=== PATIENT | male | born 1965 | race Caucasian/White ===

== ENCOUNTER → 2016-08-19 | Outpatient (REF) | payer OTHER ==
[~2016-08-19] MED LIST: ALTA5CAP OR; CIPR25SS OR; FLAG500T OR; PAIN325T OR; SIMV20TA2 OR; VICO5TAB OR
[2016-08-19 12:33] LABS: ALBUMIN 4.1 GM/DL (3.2-5.2); ALBUMIN/GLOBULIN RATIO 1.86 (1.00-1.93); ALKALINE PHOSPHATASE 55 U/L (45-117); ALT/SGPT 30 U/L (12-78); ANION GAP 7 MEQ/L (8-16); AST/SGOT 16 U/L (15-37); BILIRUBIN,TOTAL 0.9 MG/DL (0.2-1.0); BLOOD UREA NITROGEN 20 MG/DL (7-18); CALCIUM LEVEL 8.4 MG/DL (8.5-10.1); CARBON DIOXIDE LEVEL 31 MEQ/L (21-32); CHLORIDE LEVEL 104 MEQ/L (98-107); CHOLESTEROL LEVEL 170 MG/DL (<200); CREATININE FOR GFR 0.94 MG/DL (0.70-1.30); GLOMERULAR FILTRATION RATE > 60.0 (>56); GLUCOSE, FASTING 100 MG/DL (70-105); POTASSIUM SERUM 3.6 MEQ/L (3.5-5.1); SODIUM LEVEL 142 MEQ/L (136-145); TOTAL PROTEIN 6.3 GM/DL (6.4-8.2); TRIGLYCERIDES LEVEL 198 MG/DL (<150)
== END ==
LOC: M LABDRWAD 12:09
PROVIDERS: ATTEND Internal Medicine
DX: E78.5 Hyperlipidemia, unspecified (principal); K21.9 Gastro-esophageal reflux disease without esophagitis; I10 Essential (primary) hypertension

== ENCOUNTER → 2017-02-16 | Outpatient (REF) | payer OTHER ==
[~2017-02-16] MED LIST changes: +CARB25TA PO; +LOSA25TA8 PO
[2017-02-16 13:10] LABS: ALKALINE PHOSPHATASE 58 U/L (45-117); ALT/SGPT 32 U/L (12-78); ANION GAP 7 MEQ/L (8-16); AST/SGOT 11 U/L (15-37); BILIRUBIN,TOTAL 0.9 MG/DL (0.2-1.0); BLOOD UREA NITROGEN 18 MG/DL (7-18); CALCIUM LEVEL 8.7 MG/DL (8.5-10.1); CARBON DIOXIDE LEVEL 29 MEQ/L (21-32); CHLORIDE LEVEL 105 MEQ/L (98-107); CHOLESTEROL LEVEL 200 MG/DL (<200); CREATININE FOR GFR 0.91 MG/DL (0.70-1.30); GLOMERULAR FILTRATION RATE > 60.0 (>56); GLUCOSE, FASTING 96 MG/DL (70-105); POTASSIUM SERUM 3.7 MEQ/L (3.5-5.1); SODIUM LEVEL 141 MEQ/L (136-145); TOTAL PROTEIN 6.5 GM/DL (6.4-8.2); TRIGLYCERIDES LEVEL 207 MG/DL (<150)
== END ==
LOC: M LABDRWAD 12:35
PROVIDERS: ATTEND Internal Medicine
DX: E78.5 Hyperlipidemia, unspecified (principal); I10 Essential (primary) hypertension

== ENCOUNTER 2017-04-30 11:50 | Day surgery (SDC) | payer OTHER ==
[~2017-04-30] VITALS: Ht 177.8 cm; Wt 102.1 kg
[2017-04-30] MEDS ORDERED: LR 1,000 ML IV ONE (12:00)
[2017-04-30] MEDS ORDERED: PROPOFOL 200 MG/20 ML VIAL As Ordered ONE (13:28)
[2017-04-30] MEDS ORDERED: ONDANSETRON 4MG/2ML VIAL (J2405) As Ordered ONE (13:31)
[2017-04-30] MEDS ORDERED: fentaNYL 100 MCG/2 ML INJECTION (J3010) As Ordered ONE (13:31)
[2017-04-30] MEDS ORDERED: MIDAZOLAM INJ 2 MG/2 ML VIAL (J2250) As Ordered ONE (13:31)
[2017-04-30] MEDS ORDERED: BUPIVACAINE/EPIN 0.25% 30 ML VIAL As Ordered ONE (14:00)
[2017-04-30] MEDS ORDERED: MEPERIDINE INJ 25 MG/ML VIAL (J2175) IV PRN (15:45)
[2017-04-30] MEDS ORDERED: METOCLOPRAMIDE INJ 10MG/2ML VIAL (J2765) IV PRN (15:45)
[2017-04-30] MEDS ORDERED: fentaNYL 100 MCG/2 ML INJECTION (J3010) IV PRN (15:45)
[2017-04-30] MEDS ORDERED: NORCO, ANEXSIA 5/325MG TABLET (HYDROcodone/ACETAMINOPHEN) PO PRN (15:45)
[2017-04-30] MEDS ORDERED: PERCOCET 5MG/325MG TAB PO PRN (15:45)
[2017-04-30] MEDS ORDERED: MORPHINE 2 MG/ML 1ML SYRINGE IV PRN (15:45)
[2017-04-30] MEDS ORDERED: LR 1,000 ML IV SCH ×2 (15:45)
[2017-04-30] MEDS ORDERED: ONDANSETRON 4MG/2ML VIAL (J2405) IV PRN ×2 (15:45)
[2017-04-30 16:00] VITALS: BP 146/90
--- NOTE | 2017-05-09 14:09 | RO ---
DATE OF PROCEDURE: 04/30/2017 PREOPERATIVE DIAGNOSIS: Melanoma in situ right arm. POSTOPERATIVE DIAGNOSIS: Melanoma in situ right arm. PROCEDURE: Wide local excision melanoma in situ right arm. SURGEON: Yair Sanders MD STUDIO OPERATIONS ENGINEER IN CHARGE: ANESTHESIA: Intravenous (IV) sedation, plus local. ESTIMATED BLOOD LOSS (EBL): Minimal. FLUIDS: Crystalloid. BRIEF PROCEDURE SUMMARY: The patient was brought to the operating room, was given IV sedation. After adequate IV sedation, the patient was (dictation cut off) the patient had been prepped and draped in usual sterile fashion. Local lidocaine mixed with epinephrine and Marcaine was infiltrated into the skin, subcutaneous tissue surrounding this melanoma. An elliptical incision was made after marking out the margins outside of the previous biopsy site, and a 8 cm long elliptical incision was made with skin knife and electrocautery was then used to cut through dermis, subcutaneous tissue. Eventually, this was removed using a combination of blunt and sharp dissection as well as electrocautery through the skin and subcutaneous tissue. Once this was removed, the skin flaps were mobilized minimally with blunt dissection as well as electrocautery, but seemed to come together nicely with #2-0 Vicryl deep layer, #3-0 Vicryl dermal layer and #4-0 Vicryl subcuticular. Steri-Strips and dry sterile dressing was applied. The patient was awakened from his sedation, brought to the recovery room awake, alert and hemodynamically stable. Sponge and needle counts correct times two.
== END 2017-04-30 16:05 | disposition home or self-care (01) ==
LOC: M SDC 11:50
PROVIDERS: ATTEND Surgery
DX: C43.61 Malignant melanoma of right upper limb, including shoulder (principal); L90.5 Scar conditions and fibrosis of skin; I10 Essential (primary) hypertension; E78.00 Pure hypercholesterolemia, unspecified; M12.9 Arthropathy, unspecified; G25.81 Restless legs syndrome; Z79.899 Other long term (current) drug therapy
CPT/HCPCS: 88305; J0690; J2250; J2405; J3010

== ENCOUNTER → 2017-08-13 | Outpatient (REF) | payer OTHER ==
[2017-08-13 12:49] LABS: ALBUMIN 4.5 GM/DL (3.2-5.2); ALKALINE PHOSPHATASE 64 U/L (45-117); ALT/SGPT 29 U/L (12-78); ANION GAP 8 MEQ/L (8-16); AST/SGOT 20 U/L (7-37); BILIRUBIN,TOTAL 1.3 MG/DL (0.2-1.0); BLOOD UREA NITROGEN 17 MG/DL (7-18); CALCIUM LEVEL 9.1 MG/DL (8.5-10.1); CARBON DIOXIDE LEVEL 31 MEQ/L (21-32); CHLORIDE LEVEL 103 MEQ/L (98-107); CHOLESTEROL LEVEL 145 MG/DL (<200); CHOLESTEROL RISK RATIO 3.536 (<5); CREATININE FOR GFR 1.02 MG/DL (0.70-1.30); GLOMERULAR FILTRATION RATE > 60.0 (>56); GLUCOSE, FASTING 92 MG/DL (70-100); HDL CHOLESTEROL 41 MG/DL (>40); LDL CHOLESTEROL 84.2 MG/DL (<100); NON-HDL-C 104 MG/DL; POTASSIUM SERUM 3.7 MEQ/L (3.5-5.1); SODIUM LEVEL 142 MEQ/L (136-145); TRIGLYCERIDES LEVEL 99 MG/DL (<150)
== END ==
LOC: M LABDRWAD 12:02
DX: I10 Essential (primary) hypertension (principal); E78.5 Hyperlipidemia, unspecified

== ENCOUNTER → 2017-10-10 | Outpatient (CLI) | payer OTHER | LOC: M ADAMS 14:06 | DX: M54.6 Pain in thoracic spine (principal) | CPT/HCPCS: 72072 ==

== ENCOUNTER → 2018-08-27 | Outpatient (CLI) | payer OTHER ==
[~2018-08-27] MED LIST changes: -CARB25TA PO; +CARB25TA9 PO; +LOSA25TA14 PO; -LOSA25TA8 PO
[2018-08-27 18:59] LABS: ALBUMIN 4.7 GM/DL (3.2-5.2); ALT/SGPT 25 U/L (12-78); BLOOD UREA NITROGEN 19 MG/DL (7-18); CALCIUM LEVEL 8.8 MG/DL (8.5-10.1); CARBON DIOXIDE LEVEL 31 MEQ/L (21-32); CHLORIDE LEVEL 99 MEQ/L (98-107); CHOLESTEROL LEVEL 178 MG/DL (<200); CHOLESTEROL RISK RATIO 4.684 (<5); CREATININE FOR GFR 0.96 MG/DL (0.70-1.30); GLOMERULAR FILTRATION RATE > 60.0 (>56); GLUCOSE, FASTING 95 MG/DL (70-100); HDL CHOLESTEROL 38 MG/DL (>40); LDL CHOLESTEROL 123 MG/DL (<100); NON-HDL-C 140 MG/DL; POTASSIUM SERUM 3.5 MEQ/L (3.5-5.1); SODIUM LEVEL 137 MEQ/L (136-145); TOTAL PROTEIN 7.1 GM/DL (6.4-8.2); TRIGLYCERIDES LEVEL 86 MG/DL (<150)
== END ==
LOC: M ADAMS 10:54
PROVIDERS: ATTEND Internal Medicine
DX: E78.5 Hyperlipidemia, unspecified (principal); I10 Essential (primary) hypertension

== ENCOUNTER 2019-01-10 00:05 | Emergency (ER) | payer OTHER ==
[~2019-01-10] VITALS: Ht 177.8 cm; Wt 96.6 kg
[2019-01-10] MEDS ORDERED: LOSA100T5 PO (00:29)
[2019-01-10 00:32] LABS: BASO % 0.3 % (0.0-1.0); EOS # 0.1 10^3/uL (0.0-0.50); EOS % 0.9 % (0.0-3.0); HEMATOCRIT 44.5 % (42.0-52.0); HEMOGLOBIN 16.1 g/dl (13.5-17.5); LYMPH % 31.8 % (24.0-44.0); MEAN CORPUSCULAR HEMOGLOBIN 30.1 pg (27.0-33.0); MEAN CORPUSCULAR HGB CONC 36.2 g/dl (32.0-36.5); MEAN CORPUSCULAR VOLUME 83.2 fl (80.0-96.0); MONO # 0.5 10^3/uL (0.0-0.8); MONO % 7.3 % (0.0-5.0); NEUTROPHILS # 3.8 10^3/uL (1.8-7.7); NEUTROPHILS % 59.4 % (36.0-66.0); PLATELET COUNT, AUTOMATED 157 10^3/uL (150-450); RED BLOOD COUNT 5.35 10^6/uL (4.30-6.10); WHITE BLOOD COUNT 6.3 10^3/uL (4.0-10.0)
--- NOTE | 2019-01-10 00:40 | REPVR ---
EXAM: CT Head Without Contrast EXAM DATE/TIME: 01/10/2019 12:10 AM CLINICAL HISTORY: 53 years old, male; Weakness, facial; Additional info: CVA - nursing interventions must not delay CT TECHNIQUE: Imaging protocol: Computed tomography images of the head without contrast. Radiation optimization: All CT scans at this facility use at least one of these dose optimization techniques: automated exposure control; mA and/or kV adjustment per patient size (includes targeted exams where dose is matched to clinical indication); or iterative reconstruction. Other technique: STROKE PROTOCOL was implemented. COMPARISON: No relevant prior studies available. FINDINGS: Brain: There are 2 right and 1 left basal ganglia hyperdensities measuring up to 2 mm and 1 mm on the right and 4 mm on the left, measuring approximately 53 HU. No visible edema. No evidence of acute territorial infarction. No mass effect or midline shift. Ventricles: No hydrocephalus. Bones/joints: Unremarkable. No acute fracture. Sinuses: Visualized sinuses are unremarkable. No fluid levels. Mastoid air cells: No mastoid effusion. Soft tissues: Unremarkable. IMPRESSION: 1. Bilateral basal ganglia hyperdensities, which could represent hemorrhages, calcifications, or prominent vessels. Comparison with prior studies may be helpful if available. Consider followup CT or MRI. 2. No evidence of acute territorial infarction. ASSESSMENT: Carin Stroke Program Early CT Score (ASPECTS) = 10. Electronically signed by: Jhon Watt On 01/10/2019 00:40:17 AM
[2019-01-10 00:44] LABS: INR 1.04; PROTHROMBIN TIME 13.3 SECONDS (11.8-14.0)
[2019-01-10 00:45] LABS: PARTIAL THROMBOPLASTIN TIME 26.3 SECONDS (25.0-38.4)
[2019-01-10 00:59] LABS: BLOOD UREA NITROGEN 20 MG/DL (7-18); CALCIUM LEVEL 8.7 MG/DL (8.5-10.1); CARBON DIOXIDE LEVEL 31 MEQ/L (21-32); CHLORIDE LEVEL 105 MEQ/L (98-107); CK-MB VALUE MASS 1.6 NG/ML (<3.6); CPK CREATINE PHOSPHOKINASE 230 U/L (39-308); CREATININE FOR GFR 0.92 MG/DL (0.70-1.30); GLOMERULAR FILTRATION RATE > 60.0 (>56); GLUCOSE, FASTING 102 MG/DL (70-100); POTASSIUM SERUM 3.2 MEQ/L (3.5-5.1); SODIUM LEVEL 141 MEQ/L (136-145); TROPONIN I < 0.02 NG/ML (< 0.10)
[2019-01-10] MEDS ORDERED: POTASSIUM CHLORIDE 10 MEQ SR TABLET PO ONE (01:15)
[2019-01-10 01:27] VITALS: BP 128/89
--- NOTE | 2019-01-10 02:47 | REP ---
Clinical: Acute cerebrovascular accident . Comparison: 10/24/2015 . Findings: The mediastinum and cardiac silhouette are stable and within normal limits for portable technique. The lung valencia are clear without acute consolidation, effusion, or pneumothorax. Skeletal structures are intact. Impression: No acute cardiopulmonary process appreciated. Electronically Signed by Duane Sanford MD 01/10/2019 02:38 A
--- NOTE | 2019-01-10 05:44 | ECGEPIP ---
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
== END 2019-01-10 01:29 | disposition short-term general hospital (02) ==
LOC: M ED 00:05
DX: R20.0 Anesthesia of skin (principal); R93.0 Abnormal findings on diagnostic imaging of skull and head, not elsewhere classified; R00.2 Palpitations; I10 Essential (primary) hypertension; E78.5 Hyperlipidemia, unspecified; G25.81 Restless legs syndrome; Z79.899 Other long term (current) drug therapy

== ENCOUNTER → 2019-08-05 | Outpatient (CLI) | payer OTHER ==
[~2019-08-05] MED LIST changes: +LOSA100T5 PO
[2019-08-05 12:04] LABS: ALBUMIN 4.6 GM/DL (3.2-5.2); ALT/SGPT 35 U/L (12-78); BILIRUBIN,TOTAL 1.1 MG/DL (0.2-1.0); BLOOD UREA NITROGEN 20 MG/DL (7-18); CALCIUM LEVEL 9.2 MG/DL (8.5-10.1); CARBON DIOXIDE LEVEL 33 MEQ/L (21-32); CHLORIDE LEVEL 102 MEQ/L (98-107); CHOLESTEROL LEVEL 167 MG/DL (<200); CHOLESTEROL RISK RATIO 4.638 (<5); CREATININE FOR GFR 1.02 MG/DL (0.70-1.30); GLOMERULAR FILTRATION RATE > 60.0 (>56); GLUCOSE, FASTING 95 MG/DL (70-100); HDL CHOLESTEROL 36 MG/DL (>40); LDL CHOLESTEROL 107 MG/DL (<100); NON-HDL-C 131 MG/DL; POTASSIUM SERUM 3.5 MEQ/L (3.5-5.1); SODIUM LEVEL 142 MEQ/L (136-145); TOTAL PROTEIN 7.1 GM/DL (6.4-8.2); TRIGLYCERIDES LEVEL 120 MG/DL (<150)
== END ==
LOC: M LABDRWAD 10:18
PROVIDERS: ATTEND Internal Medicine
DX: I10 Essential (primary) hypertension (principal); E78.5 Hyperlipidemia, unspecified; K21.9 Gastro-esophageal reflux disease without esophagitis

== ENCOUNTER → 2020-06-29 | Outpatient (CLI) | payer SELFPAY | LOC: M LABSMTC 10:00 | PROVIDERS: ATTEND Pediatrics | DX: Z20.822 Contact with and (suspected) exposure to COVID-19 (principal) ==

== ENCOUNTER 2020-07-23 18:00 | Emergency (ER) | payer OTHER, SELFPAY ==
[~2020-07-23] VITALS: Ht 177.8 cm; Wt 100.0 kg
--- OUTSIDE RECORDS SUMMARY | 2020-07-23 18:08 | CCD ---
Author Author [facility] Organization [facility] Address Unknown Phone Unavailable Care Team Providers Care Fitter / Welder Name Role Phone Zackery SHIPMAN MD Unavailable Unavailable Zackery SHIPMAN MD Unavailable Unavailable Zackery SHIPMAN MD Unavailable Unavailable Zackery SHIPMAN MD Unavailable Unavailable Zackery SHIPMAN MD Unavailable Unavailable Zackery SHIPMAN MD Unavailable Unavailable Zackery SHIPMAN MD Unavailable Unavailable Zackery SHIPMAN MD Unavailable Unavailable Zackery SHIPMAN MD Unavailable Unavailable Zackery SHIPMAN MD Unavailable Unavailable Zackery SHIPMAN MD Unavailable Unavailable Zackery SHIPMAN MD Unavailable Unavailable Zackery SHIPMAN MD Unavailable Unavailable Zackery SHIPMAN MD Unavailable Unavailable Zackery SHIPMAN MD Unavailable Unavailable Zackery SHIPMAN MD Unavailable Unavailable Zackery SHIPMAN MD Unavailable Unavailable Zackery SHIPMAN MD Unavailable Unavailable Zackery SHIPMAN MD Unavailable Unavailable Zackery SHIPMAN MD Unavailable Unavailable Zackery SHIPMAN MD Unavailable Unavailable Zackery SHIPMAN MD Unavailable Unavailable Zackery SHIPMAN MD Unavailable Unavailable Zackery SHIPMAN MD Unavailable Unavailable Zackery SHIPMAN MD Unavailable Unavailable Zackery SHIPMNA MD Unavailable Unavailable Zackery SHIPMAN MD Unavailable Unavailable Zackery SHIPMAN MD Unavailable Unavailable Zackery SHIPMAN MD Unavailable Unavailable Zackery SHIPMAN MD Unavailable Unavailable Zackery SHIPMAN MD Unavailable Unavailable Zackery SHIPMAN MD Unavailable Unavailable Zackery SHIPMAN MD Unavailable Unavailable Zackery SHIPMAN MD Unavailable Unavailable Zackery SIHPMAN MD Unavailable Unavailable Zackery SHIPMAN MD Unavailable Unavailable Zackery SHIPMAN MD Unavailable Unavailable Zackery SHIPMAN MD Unavailable Unavailable Zackery SHIPMAN MD Unavailable Unavailable Zackery SHIPMAN MD Unavailable Unavailable Zackery SHIPMAN MD Unavailable Unavailable Zackery SHIPMAN MD Unavailable Unavailable Zackery SHIPMAN MD Unavailable Unavailable Zackery SHIPMAN MD Unavailable Unavailable Zackery SHIPMAN MD Unavailable Unavailable Zackery SHIPMAN MD Unavailable Unavailable Zackery SHIPMAN MD Unavailable Unavailable RAMONITA, H JESSIE MD Unavailable Unavailable RAMONITA, H JESSIE MD Unavailable Unavailable RAMONITA, H JESSIE MD Unavailable Unavailable RAMONITA, H JESSIE MD Unavailable Unavailable RAMONITA, H JESSIE MD Unavailable Unavailable RAMONITA, H JESSIE MD Unavailable Unavailable RAMONITA, H JESSIE MD Unavailable Unavailable RAMONITA, H JESSIE MD Unavailable Unavailable RAMONITA, H JESSIE MD Unavailable Unavailable RAMONITA, H JESSIE MD Unavailable Unavailable RAMONITA, H JESSIE MD Unavailable Unavailable RAMONITA, H JESSIE MD Unavailable Unavailable RAMONITA, H JESSIE MD Unavailable Unavailable RAMONITA, H JESSIE MD Unavailable Unavailable RAMONITA, H JESSIE MD Unavailable Unavailable RAMONITA, H JESSIE MD Unavailable Unavailable RAMONITA, H JESSIE MD Unavailable Unavailable RAMONITA, H JESSIE MD Unavailable Unavailable RAMONITA, H JESSIE MD Unavailable Unavailable RAMONITA, H JESSIE MD Unavailable Unavailable RAMONITA, H JESSIE MD Unavailable Unavailable RAMONITA, H JESSIE MD Unavailable Unavailable RAMONITA, H JESSIE MD Unavailable Unavailable RAMONITA, H JESSIE MD Unavailable Unavailable RAMONITA, H JESSIE MD Unavailable Unavailable RAMONITA, H JESSIE MD Unavailable Unavailable RAMONITA, H JESSIE MD Unavailable Unavailable RAMONITA, H JESSIE MD Unavailable Unavailable RAMONITA, H JESSIE MD Unavailable Unavailable RING, K DARLIN PA Unavailable Unavailable RING, K DARLIN PA Unavailable Unavailable RING, K DARLIN PA Unavailable Unavailable RING, K DARLIN PA Unavailable Unavailable RING, K DARLIN PA Unavailable Unavailable RING, K DARLIN PA Unavailable Unavailable RING, K DARLIN PA Unavailable Unavailable RING, K DARLIN PA Unavailable Unavailable RING, K DARLIN PA Unavailable Unavailable RING, K DARLIN PA Unavailable Unavailable RING, K DARLIN PA Unavailable Unavailable RING, K DARLIN PA Unavailable Unavailable RING, K DARLIN PA Unavailable Unavailable RING, K DARLIN PA Unavailable Unavailable RING, K DARLIN PA Unavailable Unavailable RING, K DARLIN PA Unavailable Unavailable RING, K DARLIN PA Unavailable Unavailable RING, K DARLIN PA Unavailable Unavailable RING, K DARLIN PA Unavailable Unavailable RING, K DARLIN PA Unavailable Unavailable RING, K DARLIN PA Unavailable Unavailable Re-disclosure Warning The records that you are about to access may contain information from federally-assisted alcohol or drug abuse programs. If such information is present, then the following federally mandated warning applies: This information has been disclosed to you from records protected by federal confidentiality rules (42 CFR part 2). The federal rules prohibit you from making any further disclosure of this information unless further disclosure is expressly permitted by the written consent of the person to whom it pertains or as otherwise permitted by 42 CFR part 2. A general authorization for the release of medical or other information is NOT sufficient for this purpose. The Federal rules restrict any use of the information to criminally investigate or prosecute any alcohol or drug abuse patient.The records that you are about to access may contain highly sensitive health information, the redisclosure of which is protected by Article 27-F of the [facility] Public Health law. If you continue you may have access to information: Regarding HIV / AIDS; Provided by facilities licensed or operated by the [facility] Office of Mental Health; or Provided by the [facility] Office for People With Developmental Disabilities. If such information is present, then the following [facility] mandated warning applies: This information has been disclosed to you from confidential records which are protected by state law. State law prohibits you from making any further disclosure of this information without the specific written consent of the person to whom it pertains, or as otherwise permitted by law. Any unauthorized further disclosure in violation of state law may result in a fine or custodial sentence or both. A general authorization for the release of medical or other information is NOT sufficient authorization for further disc losure. Family History Family Member Name Family Member Gender Family Member Status Date o f Status Description Data Source(s) Unknown Unknown Problem [facility] ([facility]) Unknown Male Problem [facility] ([facility]) Unknown Male Problem [facility] ([facility]) Encounters Encounter Providers Location Date Indications Data Source(s ) Outpatient Attender: JESSIE SHIPMAN MD [facility] 03:40:00 PM EDT [facility] ([facility] Outpatient Attender: DARLIN Blanchard 09/25/2019 05:45:00 PM EDT [facility] ([facility]) Medications Medication Brand Name Start Date Product Form Dose Route Admi nistrative Instructions Pharmacy Instructions Status Indications Reaction Description Data Source(s) 20 mg 04/01/2020 12:00:00 AM EDT tablet 30 TAKE ONE TABLET BY MOUTH EVERY DAY TAKE ONE TABLET BY MOUTH EVERY DAY SOLD: 04/04/2020 [facility] 20 mg 04/01/2020 12:00:00 AM EDT tablet 30 TAKE ONE TABLET BY MOUTH EVERY DAY TAKE ONE TABLET BY MOUTH EVERY DAY SOLD: 07/07/2020 [facility] 20 mg 04/01/2020 12:00:00 AM EDT tablet 30 TAKE ONE TABLET BY MOUTH EVERY DAY TAKE ONE TABLET BY MOUTH EVERY DAY SOLD: 06/05/2020 [facility] 20 mg 04/01/2020 12:00:00 AM EDT tablet 30 TAKE ONE TABLET BY MOUTH EVERY DAY TAKE ONE TABLET BY MOUTH EVERY DAY SOLD: 05/07/2020 [facility] 1 mg 02/14/2020 12:00:00 AM EDT tablet 90 TAKE ONE TABLET BY MOUTH AT BEDTIME TAKE ONE TABLET BY MOUTH AT BEDTIME SOLD: 05/17/2020 [facility] Hydrochlorothiazide 25 MG / Losartan Potassium 100 MG Oral Tablet 100-25 mg LOSARTAN POTASSIUM/HYDROCHLOROTHIAZIDE 02/14/2020 12:00:00 AM EDT tablet 9 0 TAKE ONE TABLET BY MOUTH EVERY DAY TAKE ONE TABLET BY MOUTH EVERY DAY SOLD: 02/14/2020 [facility] Hydrochlorothiazide 25 MG / Losartan Potassium 100 MG Oral Tablet 100-25 mg LOSARTAN POTASSIUM/HYDROCHLOROTHIAZIDE 02/14/2020 12:00:00 AM EDT tablet 9 0 TAKE ONE TABLET BY MOUTH EVERY DAY TAKE ONE TABLET BY MOUTH EVERY DAY SOLD: 05/23/2020 [facility] 1 mg 02/14/2020 12:00:00 AM EDT tablet 90 TAKE ONE TABLET BY MOUTH AT BEDTIME TAKE ONE TABLET BY MOUTH AT BEDTIME SOLD: 02/14/2020 [facility] ropinirole 1 MG Oral Tablet [Requip] Requip 02/13/2020 12:00:00 AM EDT ORAL active [facility] ([facility] 25-100 mg 11/20/2019 12:00:00 AM EDT tablet 270 TAKE ONE TABLET BY MOUTH EVERY DAY AT DINNER AND TAKE 2 AT BEDTIME TAKE ONE TABLET BY MOUTH EVERY DAY AT DINNER AND TAKE 2 AT BEDTIME SOLD: 11/21/2019 [facility] 10 mg 09/25/2019 12:00:00 AM EDT tablet 15 TAKE ONE TABLET BY MOUTH EVERY 8 HOURS NEEDED TAKE ONE TABLET BY MOUTH EVERY 8 HOURS NEEDED SOLD: 09/25/2019 [facility] Ibuprofen 800 MG Oral Tablet Ibuprofen 09/25/2019 12:00:00 AM EDT ORAL active [facility] ([facility]) Cyclobenzaprine hydrochloride 10 MG Oral Tablet Cyclobenzapr ine HCL 09/25/2019 12:00:00 AM EDT ORAL active M EDENT ([facility], [facility]) 800 mg 09/25/2019 12:00:00 AM EDT tablet 12 TAKE ONE TABLET BY MOUTH EVERY 6 HOURS NEEDED FOR PAIN TAKE ONE TABLET BY MOUTH EVERY 6 HOURS A S NEEDED FOR PAIN SOLD: 09/25/2019 [facility] 20 mg 02/28/2019 12:00:00 AM EDT tablet 90 TAKE ONE TABLET BY MOUTH EVERY DAY TAKE ONE TABLET BY MOUTH EVERY DAY SOLD: 11/21/2019 [facility] 20 mg 02/28/2019 12:00:00 AM EDT tablet 90 TAKE ONE TABLET BY MOUTH EVERY DAY TAKE ONE TABLET BY MOUTH EVERY DAY SOLD: 05/24/2019 [facility] 20 mg 02/28/2019 12:00:00 AM EDT tablet 30 TAKE ONE TABLET BY MOUTH EVERY DAY TAKE ONE TABLET BY MOUTH EVERY DAY SOLD: 03/04/2020 [facility] 20 mg 02/28/2019 12:00:00 AM EDT tablet 90 TAKE ONE TABLET BY MOUTH EVERY DAY TAKE ONE TABLET BY MOUTH EVERY DAY SOLD: 08/22/2019 [facility] 25-100 mg 02/15/2019 12:00:00 AM EDT tablet 270 TAKE ONE TABLET BY MOUTH EVERY DAY AT DINNER AND TAKE 2 AT BEDTIME TAKE ONE TABLET BY MOUTH EVERY DAY AT DINNER AND TAKE 2 AT BEDTIME SOLD: 07/28/2019 [facility] Hydrochlorothiazide 25 MG / Losartan Potassium 100 MG Oral Tablet 100-25 mg LOSARTAN POTASSIUM/HYDROCHLOROTHIAZIDE 11/22/2018 12:00:00 AM EDT tablet 9 0 TAKE ONE TABLET BY MOUTH EVERY DAY TAKE ONE TABLET BY MOUTH EVERY DAY SOLD: 08/22/2019 [facility] Hydrochlorothiazide 25 MG / Losartan Potassium 100 MG Oral Tablet 100-25 mg LOSARTAN POTASSIUM/HYDROCHLOROTHIAZIDE 11/22/2018 12:00:00 AM EDT tablet 9 0 TAKE ONE TABLET BY MOUTH EVERY DAY TAKE ONE TABLET BY MOUTH EVERY DAY SOLD: 11/21/2019 [facility] 100-25 mg 11/22/2018 12:00:00 AM EDT tablet 90 TAKE ONE TABLET BY MOUTH EVERY DAY TAKE ONE TABLET BY MOUTH EVERY DAY SOLD: 05/24/2019 [facility] Insurance Providers Payer name Policy type / Coverage type Policy ID Covered republican ID Covered republican's relationship to fletcher Policy Fletcher Plan Information SELF PAY ONLY [facility] [id number] UMR U [id number] Self [id number] UMR [facility] [id number] SP [id number] Umr (pr) Commercial [id number] Self [id number] Umr (pr) Commercial [id number] Self [id number] Umr/[employer] (HMO) [id number] Self [id number] [employer] [id number] SP [id number] [employer] Commercial [id number] Self [id number] [employer] Commercial [id number] Self [id number] [employer] (pr) Commercial Self [employer] Commercial Self [employer] PPO O [id number] S [id number] [facility] [place] Medigap Part B Family Depend ent [employer] Medigap Part B Self [place] Claims Workers Compensation Self [employer] COMM SELF [id number] S [id number] Results ID Date Data Source [id number] 06/29/2020 12:00:00 AM EST [facility] Name Value Range Interpretation Code Description Data Yajaira rce(s) Supporting Document(s) SARS-CoV-2 (COVID-19) RNA [Presence] in Respiratory specimen by APPLE with probe detection Not Detected [facility] This lab was ordered by [facility] and reported by [employer]. ID Date Data Source [id number] 02/13/2020 04:04:00 PM EDT [facility] ([facility] Name Value Range Interpretation Code Description Data Yajaira rce(s) Supporting Document(s) Trig 644 mg/dL 35-200 Above high normal [facility] ([facility] Chol 208 mg/dL 0-200 Above high normal [facility] ([facility] Cho/HDL Ratio 6.2 Calc [facility] ([facility] LDL_C Laboratory test result 75-129 Abnormal (applies to non -numeric results) [facility] ([facility] Cholesterol in HDL [Mass/volume] in Serum or Plasma 34 mg/dL 35-55 Below low normal [facility] ([facility] ) ID Date Data Source [id number] 02/13/2020 04:04:00 PM EDT [facility] ([facility] Name Value Range Interpretation Code Description Data Yajaira rce(s) Supporting Document(s) Glu 135 mg/dL 70-110 Above high normal [facility] ([facility] [place] BUN 17 mg/dL 8-23 [facility] ([facility] Creat 0.9 mg/dL 0.7-1.2 [facility] ([facility] BUN/Creatinine Ratio 19.8 CALC [facility] ([facility] K 3.5 mmol/L 3.5-5.1 [facility] ([facility] Na 139 mmol/L 136-145 [facility] ([facility] Co2 24.6 mmol/L 22.0-29.0 [facility] ([facility] CL 102.3 mmol/L 98.0-107.0 [facility] Alb 4.7 g/dL 3.5-5.2 [facility] ([facility] TP 6.3 g/dL 6.6-8.7 Below low normal [facility] ( [facility] [place] CA 10.0 mg/dL 8.6-10.2 [facility] ([facility] Globulin 1.6 CALC [facility] ([facility] Alp 69.1 U/L 40-129 [facility] ([facility] A/G Ratio 3.0 CALC [facility] ([facility] Alt (SGPT) 30 U/L 0-41 [facility] Osmolality-Calculated 280.8 CALC MED ENT ([facility] [place] Tbili 0.61 mg/dL 0.0-1.2 [facility] ([facility] Ast (Sgot) 21 U/L 0-40 [facility] ([facility] eGFR 112 # [facility] ( [facility] CKD-EPI Anion Gap 15 mmol/L [facility] ([facility] eGFR Non-Afr. Sierra Leonean 96 # [facility] ([facility] CKD-EPI Procedure Vital Signs ID Date Data Source UNK Name Value Range Interpretation Code Description Data Source(s) Oxygen saturation in Arterial blood by Pulse oximetry 97 % 97 % [facility] ([facility] Body mass index (BMI) [Ratio] 33.1 kg/m2 33.1 k g/m2 [facility] ([facility] Body weight 231.00 [lb_av] 231.00 [lb_av] MEDEN T ([facility] Body height 70 [in_i] 70 [in_i] [facility] ([facility] 5'10" Respiratory rate 18 /min 18 /min [facility] ( [facility] Heart rate 92 /min 92 /min [facility] Body temperature 96.8 [degF] 96.8 [degF] [facility] ([facility] Diastolic blood pressure 88 mm[Hg] 88 mm[Hg] [facility] ([facility] Systolic blood pressure 120 mm[Hg] 120 mm[Hg] M [facility] ([facility] Body mass index (BMI) [Ratio] 26.5 kg/m2 26.5 k g/m2 [facility] ([facility], [facility]) Body height 70 [in_i] 70 [in_i] [facility] ([facility] 5'10" Body weight 185.00 [lb_av] 185.00 [lb_av] MEDEN T ([facility], [facility]) Body temperature 98.6 [degF] 98.6 [degF] [facility] ([facility], [facility]) Oxygen saturation in Arterial blood by Pulse oximetry 99 % 99 % [facility] ([facility], [facility]) Respiratory rate 20 /min 20 /min [facility] ( [facility], [facility]) Heart rate 78 /min 78 /min [facility] ([facility], [facility]) Diastolic blood pressure 74 mm[Hg] 74 mm[Hg] [facility] ([facility], [facility]) Systolic blood pressure 132 mm[Hg] 132 mm[Hg] Mary THORNTON ([facility]) Oxygen saturation in Arterial blood by Pulse oximetry 98 % 98 % ROW[facility] ([facility] Body mass index (BMI) [Ratio] 31.4 kg/m2 31.4 k g/m2 [facility] ([facility] Body weight 219.00 [lb_av] 219.00 [lb_av] MEDEN T ([facility] Body height 70 [in_i] 70 [in_i] ROWENA ([facility] 5'10" Respiratory rate 14 /min 14 /min MEDMINI ( [facility] Heart rate 70 /min 70 /min MED[facility]I ([facility] Body temperature 98.0 [degF] 98.0 [degF] [facility] ([facility] Diastolic blood pressure 70 mm[Hg] 70 mm[Hg] [facility] ([facility] Systolic blood pressure 108 mm[Hg] 108 mm[Hg] Mary THORNTON ([facility]
[2020-07-23] MEDS ORDERED: ROPI1TAB3 (18:18)
--- NOTE | 2020-07-23 18:35 | REPVR ---
PROCEDURE INFORMATION: Exam: CT Head Without Contrast Exam date and time: 07/23/2020 6:11 PM Age: 55 years old Clinical indication: Visual disturbance; Additional info: Loss of vision TECHNIQUE: Imaging protocol: Computed tomography of the head without contrast. Radiation optimization: All CT scans at this facility use at least one of these dose optimization techniques: automated exposure control; mA and/or kV adjustment per patient size (includes targeted exams where dose is matched to clinical indication); or iterative reconstruction. Other technique: STROKE PROTOCOL was implemented. COMPARISON: CT Head without contrast 01/10/2019 12:28 AM FINDINGS: Brain: There are a few foci of hypodensity within the cerebral white matter, nonspecific in a patient this age. Possible etiologies include small vessel ischemic disease and demyelination. No acute intracranial hemorrhage is visualized. No intracranial mass effect. There is no midline shift. Low-lying cerebellar tonsils are visualized. Calcifications again visualized within the globus pallidus bilaterally. Artifact limits evaluation of the amna and inferior frontal lobes.The white-parks differentiation is otherwise preserved demonstrating no acute territorial type infarct. Cerebral ventricles: No ventriculomegaly. Bones/joints: The calvarium demonstrates no evidence for a depressed fracture. Nasal septal deviation to the right. Paranasal sinuses: Visualized sinuses are unremarkable. No fluid levels. Mastoid air cells: No mastoid effusion. Vasculature: The middle cerebral arteries are symmetric in density. Intracranial atherosclerosis. Soft tissues: Unremarkable. IMPRESSION: 1. No acute intracranial hemorrhage or acute territorial type infarct. 2. There are a few foci of hypodensity within the cerebral white matter, nonspecific in a patient this age. Possible etiologies include small vessel ischemic disease and demyelination. 3. If further evaluation is clinically indicated, an MRI of the brain is recommended. ASSESSMENT: [place] Stroke Program Early CT Score (ASPECTS) = 10 Electronically signed by: Steve Osborn On 07/23/2020 18:35:28 PM
--- OUTSIDE RECORDS SUMMARY | 2020-07-23 19:10 | CCD ---
Author Author [facility] Organization [facility] Address Unknown Phone Unavailable Care Team Providers Care Postdoctoral Scientist Name Role Phone Zackery SHIPMAN MD Unavailable [...] is protected by Article 27-F of the [facility] Public Health law. If you continue you may have access to information: Regarding HIV / AIDS; Provided by facilities licensed or operated by the [facility] Office of Mental Health; or Provided by the [facility] Office for People With Developmental Disabilities. If such information is present, then the following [facility] mandated warning applies: This information has been [...] law may result in a fine or alf sentence or both. A general authorization for the release of medical or other information is NOT sufficient authorization for further disc losure. Family History Family Member Name Family Member Gender Family Member Status Date o f Status Description Data Source(s) Unknown Unknown Problem [facility] ([facility]) Unknown Male Problem [facility] ([facility]) Unknown Male Problem [facility] ([facility]) Encounters Encounter Providers Location Date Indications Data Source(s ) Outpatient Attender: JESSIE SHIPMAN MD [facility] 03:40:00 PM EDT [facility] ([facility] Outpatient Attender: DARLIN Blanchard 09/25/2019 05:45:00 PM EDT [facility] ([facility]) Medications Medication Brand Name Start Date [...] TABLET BY MOUTH AT BEDTIME SOLD: 02/14/2020 [facility] ropinirole 1 MG Oral Tablet [Requip] [...] 09/25/2019 12:00:00 AM EDT ORAL active MED[facility] ([facility]) Cyclobenzaprine hydrochloride 10 MG Oral Tablet Cyclobenzapr ine HCL 09/25/2019 12:00:00 AM EDT ORAL active M EDENT (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 [employer] (HMO) [id number] Self [id number] [employer] [id number] SP [id number] [employer] [id number] Self [id number] [employer] [id number] Self [id number] [employer] (pr) Commercial Self [employer] Commercial Self [employer] PPO O [id number] S [id number] BS Of [place] Medigap Part B Family Depend ent [employer] Medigap Part B Self [place] Claims Workers Compensation Self [employer] COMM SELF [id number] S [id number] Results ID Date Data Source [id number] 06/29/2020 12:00:00 AM EST [facility] Name Value Range Interpretation Code Description Data Yajaira rce(s) Supporting Document(s) SARS-CoV-2 (COVID-19) RNA [Presence] in Respiratory specimen by APPLE with probe detection Not Detected [facility] This lab was ordered by [facility] and reported by [facility]. ID Date Data Source [id number] 02/13/2020 04:04:00 PM EDT MEDENT ([facility] Name Value Range Interpretation Code Description Data Yajaira rce(s) Supporting Document(s) Trig 644 mg/dL 35-200 Above high normal [facility] ([facility] Chol 208 mg/dL 0-200 Above high normal [facility] ([facility] Cho/HDL Ratio 6.2 Calc [facility] ([facility] LDL_C Laboratory test result 75-129 Abnormal (applies to non -numeric results) [facility] ([facility] Cholesterol in HDL [Mass/volume] in Serum or Plasma 34 mg/dL 35-55 Below low normal [facility] ([facility] ) ID Date Data Source [id number] 02/13/2020 04:04:00 PM EDT MED[facility] ([facility] Name Value Range Interpretation Code Description Data Yajaira rce(s) Supporting Document(s) Glu 135 mg/dL 70-110 Above high normal [facility] ([facility] BUN 17 mg/dL 8-23 [facility] Creat 0.9 mg/dL 0.7-1.2 [facility] BUN/Creatinine Ratio 19.8 CALC [facility] ([facility] K 3.5 mmol/L 3.5-5.1 [facility] ([facility] Na 139 mmol/L 136-145 [facility] ([facility] Co2 24.6 mmol/L 22.0-29.0 MED[facility] ([facility] CL 102.3 mmol/L 98.0-107.0 [facility] ([facility] Alb 4.7 g/dL 3.5-5.2 [facility] TP 6.3 g/dL 6.6-8.7 Below low normal MED[facility] ( [facility] CA 10.0 mg/dL 8.6-10.2 [facility] ([facility] Globulin 1.6 CALC MED[facility] ([facility] Alp 69.1 U/L 40-129 [facility] A/G Ratio 3.0 CALC [facility] ([facility] Alt (SGPT) 30 U/L 0-41 [facility] ([facility] Osmolality-Calculated 280.8 CALC MED ENT ([facility] Tbili 0.61 mg/dL 0.0-1.2 [facility] ([facility] Ast (Sgot) 21 U/L 0-40 [facility] ([facility] eGFR 112 # MED[facility] ( [facility] CKD-EPI Anion Gap 15 mmol/L [facility] ([facility] eGFR Non-Afr. British 96 # MEDENT ([facility] CKD-EPI Procedure Vital Signs ID Date Data Source UNK Name Value Range Interpretation Code Description Data Source(s) Oxygen saturation in Arterial blood by Pulse oximetry 97 % 97 % [facility] ([facility] Body mass index (BMI) [Ratio] 33.1 kg/m2 33.1 k g/m2 MED[facility] ([facility] Body weight 231.00 [lb_av] 231.00 [lb_av] MEDEN T ([facility] Body height 70 [in_i] 70 [in_i] MED[facility] ([facility] 5'10" Respiratory rate 18 /min 18 /min MED[facility] ( [facility] Heart rate 92 /min 92 /min [facility] ([facility] Body temperature 96.8 [degF] 96.8 [degF] [facility] ([facility] Diastolic blood pressure 88 mm[Hg] 88 mm[Hg] [facility] Systolic blood pressure 120 mm[Hg] 120 mm[Hg] M EDENT ([facility] Body mass index (BMI) [Ratio] 26.5 kg/m2 26.5 k g/m2 MED[facility] ([facility]) Body height 70 [in_i] 70 [in_i] MEDENT ([facility]) 5'10" Body weight 185.00 [lb_av] 185.00 [lb_av] MEDEN T ([facility], [facility]) Body temperature 98.6 [degF] 98.6 [degF] MEDENT ([facility]) Oxygen saturation in Arterial blood by Pulse oximetry 99 % 99 % [facility] ([facility]) Respiratory rate 20 /min 20 /min MED[facility] ( [facility]) Heart rate 78 /min 78 /min MEDENT ([facility]) Diastolic blood pressure 74 mm[Hg] 74 mm[Hg] MEDMINI ([facility]) Systolic blood pressure 132 mm[Hg] 132 mm[Hg] Mary THORNTON ([facility]) Oxygen saturation in Arterial blood by Pulse oximetry 98 % 98 % ROWENA ([facility] Body mass index (BMI) [Ratio] 31.4 kg/m2 31.4 k g/m2 MED[facility] ([facility] Body weight 219.00 [lb_av] 219.00 [lb_av] MEDEN T ([facility] Body height 70 [in_i] 70 [in_i] MEDENT ([facility] 5'10" Respiratory rate 14 /min 14 /min MEDENT ( [facility] Heart rate 70 /min 70 /min MEDMINI ([facility] Body temperature 98.0 [degF] 98.0 [degF] MEDENT ([facility] Diastolic blood pressure 70 mm[Hg] 70 mm[Hg] ROWENA ([facility] Systolic blood pressure 108 mm[Hg] 108 mm[Hg] Mary THORNTON ([facility]
[2020-07-23] MEDS ORDERED: PHENYLEPHRINE 2.5% OPHTH SOL 2ML OU ONE (20:30)
[2020-07-23] MEDS ORDERED: TROPICAMIDE 0.5% OPHTH SOLN 15 ML OU ONE (20:30)
[2020-07-23 22:35] VITALS: BP 126/94
--- NOTE | 2020-07-24 07:23 | ECGEPIP ---
[facility] - ED Test Date: 2020-07-23 Pat Name: TIFFANY DILLON Department: Room: - Gender: Male Screen Printer: : 1965 Requested By: Clarke Landeros Order Number: [id number] Reading MD: Pierce Gomez Measurements Intervals [place] Rate: 73 P: 25 VA: 177 QRS: -24 QRSD: 112 T: 28 QT: 378 QTc: 417 Interpretive Statements SINUS RHYTHM Delayed anterior R wave progression Similar to tracing done 01-10-19 Electronically Signed on 07-24-2020 7:23:11 EST by Pierce Gomez
--- NOTE | 2020-07-24 08:35 | CR ---
CONSULTATION DATE: 07/23/2020 REASON FOR CONSULTATION: Consultation request regarding blurry vision in the right eye. HISTORY OF PRESENT ILLNESS: This is a 55-year-old male who around 5 p.m. this evening noted some dark spots in his right eye that became progressively worse so he presented to the emergency department at [facility]. Over the past few hours into the onset of symptoms, he has noticed that the vision has become completely blurry to where he cannot distinguish his hand in front of his face. There is no associated pain or flashes of light. He also describes a shifting parks to light cloud-like veil in the right eye. There are no symptoms in the left eye and the patient admits to having normal vision there. He does wear prescription progressive glasses. PAST MEDICAL HISTORY: 1. Hypertension controlled with medication. 2. Hyperlipidemia. PAST OCULAR HISTORY: The patient remembers a similar episode but less severe approximately five years ago which apparently was treated at [facility] by Dr. Addison with "injection" into his right eye. He thinks he received about five shots. He never saw a retina specialist. PAST OCULAR SURGERY: Denies. SOCIAL HISTORY: See chart. ALLERGIES: See chart. MEDICATIONS: See chart. EXAMINATION: Lid lashes and adnexa are within normal limits bilaterally. The conjunctiva and sclerae are white and quiet, OU. The cornea is clear, OU. The lens is at 1+ NS, nuclear sclerotic cataract in both eyes. The anterior chamber is deep and quiet in both eyes. Visual acuity in the right eye is approximately hand motion at face with good projection, all four quadrants. The left eye with correction is approximately 20/25 vision. Pupils are pharmacologically dilated. Extraocular muscles are full and intact without restriction visual field is generally constricted in the right eye and the left eye is normal. Full count fingers in the left eye. Dilated fundic examination of the right eye reveals a vitreous hemorrhage with a good red reflex. There are no visible distinguishing features of the optic nerve or retina. The left eye, the cup-to-disc ratio is approximately 0.35, sharp, pink and flat. The periphery is normal. The macula is on. The vessels are normal. There is no vitreous pathology in the left eye. ASSESSMENT AND PLAN: 1. Vitreous hemorrhage in the right eye with an unknown etiology, may be secondary to hypertensive changes which he does currently have while in the emergency department. Questionable diabetes but we would need to rule out retinal pathology such as a retinal detachment or retinal tear. I suggested that he sleep upright and does not perform any heavy lifting over the next 72 hours and I will schedule consultation with the retinal specialist for ultrasonography of the right eye. 2. Remote history of an episode of likely vitreous hemorrhage in the right eye approximately 5 years ago. The records will be valuable to determine what type of treatment the patient received at that time. 3. Nuclear sclerotic cataract of both eyes. This was all discussed in detail with the patient who was awake, alert and oriented x3 in the emergency department.
--- NOTE | 2020-07-24 10:48 | ED PDOC ---
Post-Departure Follow-Up dr smith faxed formal report of ct head for fu Ronald Malcolm MD Jul 24, 2020 10:48
== END 2020-07-23 22:36 | disposition home or self-care (01) ==
LOC: M ED 18:00
DX: H43.11 Vitreous hemorrhage, right eye (principal); H25.13 Age-related nuclear cataract, bilateral; I10 Essential (primary) hypertension; E78.5 Hyperlipidemia, unspecified; G25.81 Restless legs syndrome; Z79.899 Other long term (current) drug therapy

== ENCOUNTER → 2021-08-07 | Outpatient (CLI) | payer OTHER ==
[~2021-08-07] MED LIST changes: +LOSA25TA13 PO; -LOSA25TA14 PO; +ROPI1TAB3
== END ==
LOC: M RAD 16:31
PROVIDERS: ATTEND Physician Assistant
DX: S76.319A Strain of muscle, fascia and tendon of the posterior muscle group at thigh level, unspecified thigh, initial encounter (principal); X58.XXXA Exposure to other specified factors, initial encounter; Y92.9 Unspecified place or not applicable; Y93.9 Activity, unspecified; Y99.9 Unspecified external cause status

== ENCOUNTER → 2022-10-28 | Outpatient (CLI) | payer OTHER ==
[2022-10-28 13:49] LABS: HEMATOCRIT 48.8 % (42.0-52.0); HEMOGLOBIN 16.5 g/dl (13.5-17.5); MEAN CORPUSCULAR HEMOGLOBIN 29.1 pg (27.0-33.0); MEAN CORPUSCULAR HGB CONC 33.8 g/dl (32.0-36.5); MEAN CORPUSCULAR VOLUME 86.1 fl (80.0-96.0); PLATELET COUNT, AUTOMATED 202 10^3/uL (150-450); RED BLOOD COUNT 5.67 10^6/uL (4.30-6.10); WHITE BLOOD COUNT 5.7 10^3/uL (4.0-10.0)
[2022-10-28 14:21] LABS: LIPASE 31 U/L (12-53)
[2022-10-28 14:23] LABS: ALBUMIN 4.2 G/DL (3.2-5.2); ALKALINE PHOSPHATASE 75 U/L (46-116); ALT/SGPT 26 U/L (7.0-40); AMYLASE 45 U/L (30-118); AST/SGOT 20 U/L (<34); BLOOD UREA NITROGEN 23 MG/DL (9-23); CARBON DIOXIDE LEVEL 30 MMOL/L (20-31); CHLORIDE LEVEL 102 MMOL/L (98-107); CREATININE FOR GFR 1.03 MG/DL (0.70-1.30); GLOMERULAR FILTRATION RATE > 60.0 (>56); GLUCOSE, FASTING 103 MG/DL (60-100); POTASSIUM SERUM 3.4 MMOL/L (3.5-5.1); SODIUM LEVEL 140 MMOL/L (136-145); TOTAL PROTEIN 6.2 G/DL (5.7-8.2)
== END ==
LOC: M ADAMS 07:16
PROVIDERS: ATTEND Internal Medicine
DX: R11.10 Vomiting, unspecified (principal)

== ENCOUNTER → 2022-12-15 | Outpatient (CLI) | payer OTHER ==
[~2022-12-15] MED LIST changes: +E-Z-GAS II EFFERVESCENT PACKET (SODIUM BICARB./CITRIC ACID/SIMETHICONE) As Ordered ONE; +E-Z-HD 98% w/w 340GM SUSP BTL As Ordered ONE; +E-Z-PAQUE 96% w/w SUSP 176GM BTL As Ordered ONE; +OMEP-173 PO; +POTA-298 PO; +SIMV20TA22 PO
== END ==
LOC: M RAD 08:36
PROVIDERS: ATTEND Surgery
DX: R11.2 Nausea with vomiting, unspecified (principal)

== ENCOUNTER 2022-12-24 09:51 | Day surgery (SDC) | payer OTHER ==
[~2022-12-24] VITALS: Ht 177.8 cm; Wt 103.1 kg
[~2022-12-24 09:51] MED LIST changes: -E-Z-GAS II EFFERVESCENT PACKET (SODIUM BICARB./CITRIC ACID/SIMETHICONE) As Ordered ONE; -E-Z-HD 98% w/w 340GM SUSP BTL As Ordered ONE; -E-Z-PAQUE 96% w/w SUSP 176GM BTL As Ordered ONE; +NS 1,000 ML IV ONE
[2022-12-24] MEDS ORDERED: propofoL 200 MG/20 ML VIAL As Ordered ONE (11:01)
[2022-12-24 11:12] VITALS: TEMP 97.6
[2022-12-24 11:29] VITALS: BP 143/86; O2SAT 99
== END 2022-12-24 11:36 | disposition home or self-care (01) ==
LOC: M OPP 09:51
PROVIDERS: ATTEND Surgery
DX: K31.89 Other diseases of stomach and duodenum (principal); K44.9 Diaphragmatic hernia without obstruction or gangrene; R11.2 Nausea with vomiting, unspecified; Z79.02 Long term (current) use of antithrombotics/antiplatelets; Z79.1 Long term (current) use of non-steroidal anti-inflammatories (NSAID); Z79.899 Other long term (current) drug therapy

== ENCOUNTER → 2023-03-29 | Outpatient (REF) | payer OTHER ==
[~2023-03-29] MED LIST changes: -NS 1,000 ML IV ONE; -ROPI1TAB3; +ROPI1TAB73
[2023-03-29 13:27] LABS: ALBUMIN 4.2 G/DL (3.2-5.2); ALKALINE PHOSPHATASE 73 U/L (46-116); ALT/SGPT 26 U/L (7.0-40); AST/SGOT 16 U/L (<34); BILIRUBIN,TOTAL 0.9 MG/DL (0.3-1.2); BLOOD UREA NITROGEN 20 MG/DL (9-23); CARBON DIOXIDE LEVEL 29 MMOL/L (20-31); CHLORIDE LEVEL 105 MMOL/L (98-107); CHOLESTEROL LEVEL 172 MG/DL (<200); CHOLESTEROL RISK RATIO 4.14 (<5); CREATININE FOR GFR 0.91 MG/DL (0.70-1.30); GLOMERULAR FILTRATION RATE > 60.0 (>56); GLUCOSE, FASTING 101 MG/DL (60-100); HDL CHOLESTEROL 41.5 MG/DL (>40); LDL CHOLESTEROL 106.7 MG/DL (<100); NON-HDL-C 130.5 MG/DL; POTASSIUM SERUM 3.5 MMOL/L (3.5-5.1); SODIUM LEVEL 141 MMOL/L (136-145); TOTAL PROTEIN 6.4 G/DL (5.7-8.2); TRIGLYCERIDES LEVEL 119 MG/DL (<150)
== END ==
LOC: M LABDRWAD 12:21
PROVIDERS: ATTEND Internal Medicine
DX: E78.5 Hyperlipidemia, unspecified (principal)

== ENCOUNTER → 2023-07-09 | Outpatient (CLI) | payer OTHER ==
[~2023-07-09] MED LIST changes: +CYCL-707; +FLOM0.4C39 PO; +IBUP80TA PO; +NAPR-885; +PERC5TAB12 PO; +PRED20TA PO
== END ==
LOC: M WUC 12:48
PROVIDERS: ATTEND Physician Assistant
DX: S39.012A Strain of muscle, fascia and tendon of lower back, initial encounter (principal)

== ENCOUNTER 2023-07-11 17:38 | Emergency (ER) | payer OTHER ==
[~2023-07-11] VITALS: Ht 177.8 cm; Wt 102.3 kg
[~2023-07-11 17:38] MED LIST changes: -CYCL-707; -FLOM0.4C39 PO; -IBUP80TA PO; -NAPR-885; -PERC5TAB12 PO; -PRED20TA PO
[2023-07-11] MEDS ORDERED: PRED20TA PO (18:19)
[2023-07-11] MEDS ORDERED: NAPR-885 (18:19)
[2023-07-11] MEDS ORDERED: CYCL-707 (18:20)
[2023-07-11] MEDS ORDERED: HYDROMORPHONE HCL 0.5 MG/ 0.5 ML SYRINGE IV ONE ×2 (19:00→20:35)
[2023-07-11 19:28] LABS: HEMATOCRIT 45.4 % (42.0-52.0); HEMOGLOBIN 16.3 g/dl (13.5-17.5); MEAN CORPUSCULAR HEMOGLOBIN 29.1 pg (27.0-33.0); MEAN CORPUSCULAR HGB CONC 35.9 g/dl (32.0-36.5); MEAN CORPUSCULAR VOLUME 81.1 fl (80.0-96.0); PLATELET COUNT, AUTOMATED 180 10^3/uL (150-450); WHITE BLOOD COUNT 8.3 10^3/uL (4.0-10.0)
[2023-07-11] MEDS ORDERED: OXYCODONE/APAP 5MG/325MG(HOME DOSE PACK) PO ONE (20:35)
[2023-07-11] MEDS ORDERED: FLOM0.4C39 PO (20:40)
[2023-07-11] MEDS ORDERED: IBUP80TA PO (20:40)
[2023-07-11] MEDS ORDERED: PERC5TAB12 PO (20:40)
[2023-07-11 21:12] VITALS: BP 139/78; TEMP 97.8; O2SAT 95
== END 2023-07-11 21:14 | disposition home or self-care (01) ==
LOC: M ED 17:38 → EDBD 17:38 → M ED 21:14
DX: N20.0 Calculus of kidney (principal); I10 Essential (primary) hypertension; F10.10 Alcohol abuse, uncomplicated; Z79.1 Long term (current) use of non-steroidal anti-inflammatories (NSAID); Z79.52 Long term (current) use of systemic steroids; Z79.899 Other long term (current) drug therapy; Z79.83 Long term (current) use of bisphosphonates
CPT/HCPCS: 74176; 80047; 81001; 85027; 96374; 96375; 99284; J1170

== ENCOUNTER → 2023-07-12 | Outpatient (CLI) | payer OTHER ==
[~2023-07-12] MED LIST changes: +CYCL-707; +FLOM0.4C39 PO; +IBUP80TA PO; +NAPR-885; +PERC5TAB12 PO; +PRED20TA PO
== END ==
LOC: M PLAIMG 10:01
PROVIDERS: ATTEND Physician Assistant
DX: J32.8 Other chronic sinusitis (principal); J34.2 Deviated nasal septum

== ENCOUNTER → 2023-08-19 | Outpatient (RCR) | payer OTHER | LOC: M PT 07-28 13:03 | PROVIDERS: ATTEND Physician Assistant Surgical | DX: M54.50 Low back pain, unspecified (principal) ==

== ENCOUNTER → 2023-09-13 | Outpatient (CLI) | payer OTHER ==
[2023-09-13 19:18] LABS: CREATININE FOR GFR 0.75 MG/DL (0.70-1.30); GLOMERULAR FILTRATION RATE > 60.0 (>56)
== END ==
LOC: M PLALAB 15:42
PROVIDERS: ATTEND Physician Assistant Medical
DX: Z00.00 Encounter for general adult medical examination without abnormal findings (principal); M54.50 Low back pain, unspecified

== ENCOUNTER 2023-09-16 15:15 | Outpatient (RCR) | payer OTHER | END 2023-09-19 | LOC: M PT 15:15 | PROVIDERS: ATTEND Physician Assistant Surgical | DX: M54.50 Low back pain, unspecified (principal) ==

== ENCOUNTER 2023-09-23 14:39 | Outpatient (RCR) | payer OTHER | END 2023-10-19 | LOC: M PT 14:39 | PROVIDERS: ATTEND Physician Assistant Surgical | DX: M54.50 Low back pain, unspecified (principal) ==

== ENCOUNTER → 2024-04-25 | Outpatient (CLI) | payer OTHER ==
[2024-04-25 10:47] LABS: HEMATOCRIT 45.9 % (42.0-52.0); HEMOGLOBIN 16.4 g/dl (13.5-17.5); MEAN CORPUSCULAR HGB CONC 35.7 g/dl (32.0-36.5); MEAN CORPUSCULAR VOLUME 84.1 fl (80.0-96.0); PLATELET COUNT, AUTOMATED 169 10^3/uL (150-450); RED BLOOD COUNT 5.46 10^6/uL (4.30-6.10); WHITE BLOOD COUNT 5.7 10^3/uL (4.0-10.0)
[2024-04-25 10:57] LABS: ALKALINE PHOSPHATASE 65 U/L (40-129); ALT/SGPT 24 U/L (7.0-40); AST/SGOT 13 U/L (<34); BILIRUBIN,TOTAL 1.1 MG/DL (0.3-1.2); BLOOD UREA NITROGEN 24 MG/DL (9-23); CARBON DIOXIDE LEVEL 30 MMOL/L (20-31); CHLORIDE LEVEL 103 MMOL/L (98-107); CHOLESTEROL LEVEL 173 MG/DL (<200); CREATININE FOR GFR 0.89 MG/DL (0.70-1.30); GLOMERULAR FILTRATION RATE > 60.0 (>56); GLUCOSE, FASTING 107 MG/DL (60-100); LDL CHOLESTEROL 98.2 MG/DL (<100); POTASSIUM SERUM 3.8 MMOL/L (3.5-5.1); PSA SCREENING 1.27 NG/ML (< 4.00); SODIUM LEVEL 139 MMOL/L (136-145); TOTAL PROTEIN 6.6 G/DL (5.7-8.2); TRIGLYCERIDES LEVEL 194 MG/DL (<150)
[2024-04-25 10:58] LABS: TOTAL 25(OH) VITAMIN D 23.8 NG/ML (20.0-100.0)
[2024-04-25 10:59] LABS: THYROID STIMULATING HORMONE 1.026 uIU/ML (0.55-4.78)
[2024-04-25 11:07] LABS: APPEARANCE, URINE CLEAR (CLEAR); BACTERIA, URINE AUTO NEGATIVE (NEGATIVE); BILIRUBIN, URINE AUTO NEGATIVE (NEGATIVE); BLOOD, URINE BLOOD 1+ (NEGATIVE); COLOR, URINE YELLOW (YELLOW); GLUCOSE, URINE (UA) AUTO NEGATIVE (NEGATIVE); KETONE, URINE AUTO NEGATIVE (NEGATIVE); LEUKOCYTE ESTERASE, URINE AUTO NEGATIVE (NEGATIVE); MUCUS, URINE SMALL (NEGATIVE); NITRITE, URINE AUTO NEGATIVE (NEGATIVE); PROTEIN, URINE AUTO NEGATIVE (NEGATIVE); RBC, URINE AUTO 1 /HPF (0-3); SPECIFIC GRAVITY URINE AUTO 1.016 (1.002-1.035); SQUAMOUS EPITHELIAL CELL UR AU 0 /HPF (0-6); UROBILINOGEN, URINE AUTO 0.2 mg/dL (0.0-2.0); WBC, URINE AUTO 1 /HPF (0-3)
[2024-04-26 10:57] LABS: HEMOGLOBIN A1c 5.2 % (4.0-6.0)
== END ==
LOC: M PLALAB 07:14
PROVIDERS: ATTEND Physician Assistant
DX: E78.5 Hyperlipidemia, unspecified (principal); I10 Essential (primary) hypertension; R35.1 Nocturia; G47.62 Sleep related leg cramps
CPT/HCPCS: 36415; 80053; 80061; 81001; 82306; 82652; 83036; 83735; 84443; 85027; G0103

== ENCOUNTER → 2025-02-16 | Outpatient (REF) | payer OTHER ==
[~2025-02-16] MED LIST changes: -FLOM0.4C39 PO; +TAMS-18 PO
[2025-02-16 13:51] LABS: ALT/SGPT 31 U/L (7.0-40); AST/SGOT 25 U/L (<34); CALCIUM LEVEL 8.9 MG/DL (8.5-10.1); CARBON DIOXIDE LEVEL 28 MMOL/L (20-31); CHLORIDE LEVEL 103 MMOL/L (98-107); CHOLESTEROL LEVEL 143 MG/DL (<200); CHOLESTEROL RISK RATIO 3.73 (<5); CREATININE FOR GFR 0.95 MG/DL (0.70-1.30); GLOMERULAR FILTRATION RATE > 90.0 (>56); LDL CHOLESTEROL 78.7 MG/DL (<100); NON-HDL-C 104.7 MG/DL; POTASSIUM SERUM 3.5 MMOL/L (3.5-5.1); SODIUM LEVEL 141 MMOL/L (136-145); TRIGLYCERIDES LEVEL 130 MG/DL (<150)
== END ==
LOC: M LABDRWAD 13:07
PROVIDERS: ATTEND Internal Medicine
DX: E78.5 Hyperlipidemia, unspecified (principal)